=== PATIENT | male | born 1995 | race Caucasian/White ===

== ENCOUNTER 2018-02-03 15:29 | Emergency (ER) | payer MEDICAID, OTHER ==
[2018-02-03] MEDS ORDERED: NS 1,000 ML IV ONE ×2 (15:49→16:54)
[2018-02-03] MEDS ORDERED: ONDANSETRON 4 MG/2 ML VIAL IVP ONE ×2 (15:50→19:01)
[2018-02-03] MEDS ORDERED: METOCLOPRAMIDE 10 MG/2 ML VIAL IVP ONE (16:19)
[2018-02-03] MEDS ORDERED: LORazepam 2 MG/ML INJ IVP ONE (16:20)
--- NOTE | 2018-02-03 19:51 | EDPHY ---
H & P Stated Complaint: NV weight loss Time Seen by Provider: 02/03/18 15:38 HPI/ROS: This patient presents with vomiting since yesterday. He reports that he has been having periodic vomiting over the past 3 months that was initially but once a week than twice a week and now over the past 24 hr has had several episodes of vomiting. He reports that the vomiting usually feels better after takes hot shower in relaxes but he had no relief from hot shower today. He had been clean of all drugs for 3 year. After using who surgeon is and marijuana but started using marijuana again 3 months ago and smokes daily. He is accompanied by his father who brought him in by private vehicle for further evaluation. ROS: No fevers or chills. No other constitutional symptoms HEENT: No recent URI symptoms or other complaints pulmonary: No shortness of breath or coughing Cardiovascular: He reports lightheadedness this afternoon GI: He reports no hematemesis. No significant abdominal pain. Does report generalized mild belly ache. 20- 30 lb weight loss over the past 3 months Musculoskeletal: No back pain. Neuro: No symptoms. No headache. 10 point ROS is otherwise negative. Source: Patient Exam Limitations: No limitations - Personal History Current Tetanus Diphtheria and Acellular Pertussis (TDAP): Yes - Medical/Surgical History Hx Asthma: No Hx Chronic Respiratory Disease: No Hx Diabetes: No Hx Cardiac Disease: No Hx Renal Disease: No Hx Cirrhosis: No Hx Alcoholism: No Hx HIV/AIDS: No Hx Splenectomy or Spleen Trauma: No Other PMH: constipation, 30 pound weight loss in 3 months, recovering drug addict. - Family History Significant Family History: No pertinent family hx - Social History Smoking Status: Current every day smoker Alcohol Use: None Drug Use: Marijuana - Physical Exam Exam: General Appearance: Alert, no distress. Eyes: Pupils equal and round no pallor or injection. ENT, Mouth: Mucous membranes moist. Respiratory: There are no retractions, lungs are clear to auscultation. Cardiovascular: Regular rate and rhythm. Gastrointestinal: Abdomen is soft and nontender, no masses, bowel sounds normal. Neurological: [ ] Skin: Warm and dry, no rashes. Musculoskeletal: Neck is supple nontender. Extremities are symmetrical, full range of motion. Psychiatric: Patient is oriented X 3, there is no agitation. DIFFERENTIAL DIAGNOSIS: After history and physical exam differential diagnosis was considered for [ ] Constitutional: Initial Vital Signs Temperature (C) 37 C 02/03/18 15:33 Heart Rate 73 02/03/18 15:33 Respiratory Rate 16 02/03/18 15:33 Blood Pressure 112/71 02/03/18 15:33 O2 Sat (%) 98 02/03/18 15:33 O2 Delivery Mode Room Air Allergies/Adverse Reactions: No Known Allergies Allergy (Verified 02/03/18 15:43) Home Medications: Medication Instructions Recorded ONDANSETRON HCL [Zofran 8 mg] 8 - 16 mg PO TID PRN #4 tab 03/21/13 Promethazine HCl [Phenergan 12.5mg 12.5 mg PO 03/21/13 tab] Ondansetron Odt [Zofran Odt] 4 - 8 mg PO Q4PRN PRN #4 tab 02/03/18 Medical Decision Making ED Course/Re-evaluation: IV normal saline bolus x2 L Studies: CBC reveals mild leukocytosis. Otherwise normal Comp metabolic panel revealed slightly elevated amylase on her POC amylase measurements. The therefore amylase lipase are sent to the hospital in these values are normal. Zofran IV 4 mg with partial relief. I was in the room other patient was then gagging himself right front of me. I-STAT why he was gagging himself any felt like he could clear some bile if he did. Encouraged him to stop gagging himself. Patient is then treated with Benadryl, Reglan and Ativan with relief. He was unable tolerate p.o. Fluids. He rested quietly for the duration of his time here. Discussion: Patient with hyperemesis dehydration in the setting of daily cannabis use. We ruled out pancreatitis. No other red flag findings. His history and exam are consistent with cannabis hyperemesis syndrome. I counseled patient and his father who accompanies him today in some detail regarding cannabis hyperemesis syndrome. I encouraged him to stop cannabis altogether ago with a light diet. Will take Zofran if needed for nausea vomiting. I also provided up primary care physician for him to follow up with. - Data Points Laboratory Results: 02/03/18 02/03/18 02/03/18 17:08 16:17 16:00 POC Sodium 142 mEq/L mEq/L (135-145) POC Potassium 3.1 mEq/L L mEq/L (3.3-5.0) POC Chloride 104.0 mEq/L mEq/L (97-110) POC Total CO2 24 mEq/L mEq/L (22-31) POC BUN 11 mg/dL mg/dL (7-23) POC Creatinine 1.2 mg/dL mg/dL (0.7-1.3) POC Glucose 110 mg/dL H mg/dL (70-100) POC Calcium 9.7 mg/dL mg/dL (8.5-10.4) POC Total Bilirubin 1.8 mg/dL H mg/dL 1.7 mg/dL H mg/dL (0.1-1.4) (0.1-1.4) POC GGT 9 IU/L IU/L (5-65) POC AST 28 IU/L IU/L 28 IU/L IU/L (17-59) (17-59) POC ALT 15 IU/L L IU/L 17 IU/L L IU/L (21-72) (21-72) POC Alk Phosphatase 38 IU/L IU/L 46 IU/L IU/L (38-126) (38-126) POC Total Protein 7.5 g/dL g/dL 7.4 g/dL g/dL (6.3-8.2) (6.3-8.2) POC Albumin 5.5 g/dL H g/dL 5.1 g/dL H g/dL (3.5-5.0) (3.5-5.0) POC Amylase 67 IU/L IU/L (30-110) Lipase 58 IU/L IU/L (23-300) Medications Given: Discontinued Medications Diphenhydramine HCl (Benadryl Injection) 25 mg IVP EDNOW ONE Stop: 02/03/18 16:21 Last Admin: 02/03/18 16:43 Dose: 25 mg Sodium Chloride (Ns) 1,000 mls @ 0 mls/hr IV EDNOW ONE; Wide Open PRN Reason: Protocol Stop: 02/03/18 15:50 Last Admin: 02/03/18 16:07 Dose: 1,000 mls Sodium Chloride (Ns) 1,000 mls @ 0 mls/hr IV ONCE ONE PRN Reason: Wide Open Stop: 02/03/18 16:55 Last Admin: 02/03/18 17:01 Dose: 1,000 mls Lorazepam (Ativan Injection) 1 mg IVP EDNOW ONE Stop: 02/03/18 16:21 Last Admin: 02/03/18 16:46 Dose: 1 mg Metoclopramide HCl (Reglan Injection) 10 mg IVP EDNOW ONE Stop: 02/03/18 16:20 Last Admin: 02/03/18 16:47 Dose: 10 mg Ondansetron HCl (Zofran) 4 mg IVP EDNOW ONE Stop: 02/03/18 15:51 Last Admin: 02/03/18 16:08 Dose: 4 mg Ondansetron HCl (Zofran) 4 mg IVP EDNOW ONE Stop: 02/03/18 19:02 Last Admin: 02/03/18 19:07 Dose: 4 mg Point of Care Test Results: CBC CBC Collection Date 02/03/18 CBC Collection Time 16:00 WBC 11.1 RBC 5.45 HGB 15.9 HCT 47.0 PLT 260 Neut # 9.0 Neut 80.6 LYMPH # 1.5 LYMPH 13.6 Other WBC # 0.6 Other WBC 5.8 MCV 86.2 Chemistry 02/03/18 02/03/18 17:08 16:17 POC Sodium 142 mEq/L mEq/L (135-145) POC Potassium 3.1 mEq/L L mEq/L (3.3-5.0) POC Chloride 104.0 mEq/L mEq/L (97-110) POC Total CO2 24 mEq/L mEq/L (22-31) POC BUN 11 mg/dL mg/dL (7-23) POC Creatinine 1.2 mg/dL mg/dL (0.7-1.3) POC Glucose 110 mg/dL H mg/dL (70-100) POC Calcium 9.7 mg/dL mg/dL (8.5-10.4) POC Total Bilirubin 1.8 mg/dL H mg/dL 1.7 mg/dL H mg/dL (0.1-1.4) (0.1-1.4) POC GGT 9 IU/L IU/L (5-65) POC AST 28 IU/L IU/L 28 IU/L IU/L (17-59) (17-59) POC ALT 15 IU/L L IU/L 17 IU/L L IU/L (21-72) (21-72) POC Alk Phosphatase 38 IU/L IU/L 46 IU/L IU/L (38-126) (38-126) POC Total Protein 7.5 g/dL g/dL 7.4 g/dL g/dL (6.3-8.2) (6.3-8.2) POC Albumin 5.5 g/dL H g/dL 5.1 g/dL H g/dL (3.5-5.0) (3.5-5.0) POC Amylase 67 IU/L IU/L (30-110) Urine Dip Collection Date 02/03/18 Collection Time 17:31 Specific [place] (1.002-1.030) 1.020 PH (5.0-7.5) 8.5 Leukocytes (Negative) Negative Nitrites (Negative) Negative Protein (Negative) Negative Glucose (Negative) Negative Ketones (Negative) 2+ Urobilnogen (0.2-1.0 EU) 0.2 Bilirubin (Negative) Negative Blood (Negative) Trace Departure - Departure Disposition: Home, Routine, Self-Care Clinical Impression: Cannabis hyperemesis syndrome concurrent with and due to cannabis abuse, Dehydration Condition: Good Instructions: Cannabis Abuse (ED) Additional Instructions: Diagnosis: Cannabis hyperemesis syndrome Plan: Stop smoking marijuana. Regular use causes buildup in her body since that his lipid soluble in that causes vomiting that is difficult to control with medications. Zofran if needed for nausea vomiting Follow up with primary care physician for any ongoing symptoms Return emergency department for any worsening despite the treatment plan. Referrals: NONE *PRIMARY CARE P,. [Primary Care Provider] - As per Instructions True Paniagua DO [Doctor of Osteopathy] - As per Instructions Prescriptions: Ondansetron Odt [Zofran Odt] 4 - 8 mg PO Q4PRN PRN #4 tab PRN Reason: Vomiting
[2018-02-03 20:03] VITALS: BP 125/78
== END 2018-02-03 20:08 | disposition home or self-care (01) ==
LOC: CED 15:29
DX: R11.10 Vomiting, unspecified (principal); F12.10 Cannabis abuse, uncomplicated; E86.0 Dehydration; E86.9 Volume depletion, unspecified; F17.200 Nicotine dependence, unspecified, uncomplicated
CPT/HCPCS: 80053-PO; 80076-PO; 82150-PO; 96374; J1200; J2060; J2405; J2765